=== PATIENT | male | born 1935 | race Caucasian/White ===

== ENCOUNTER 2019-02-19 20:36 | Emergency (ER) | payer OTHER, MEDICAID ==
[~2019-02-19] VITALS: Ht 162.6 cm; Wt 56.0 kg
[2019-02-19 22:59] LABS: HEMOGLOBIN. 11.2 g/dL (14.0-18.0); MEAN CORPUSCULAR HEMOGLOBIN 31.8 pg (28.0-32.0); MEAN CORPUSCULAR VOLUME 90.7 fL (80.0-94.0); MEAN PLATELET VOLUME 10.3 fl (7.4-10.4); PLATELET 248 x1000/uL (130-400); RED BLOOD CELL COUNT 3.53 mill/uL (4.7-6.1); RED CELL DISTRIBUTION WIDTH 12.8 % (11.6-14.6)
[2019-02-19 23:20] LABS: PLATELET ESTIMATE NORMAL
[2019-02-19 23:36] LABS: CHLORIDE 101 mEq/L (98-107)
[2019-02-19 23:56] LABS: CREATINE KINASE 121 IU/L (39-308)
[2019-02-20 03:11] VITALS: BP 157/80
[2019-02-20] MEDS ORDERED: KETOROLAC 30MG/ML VIAL IV ONE (03:30)
== END 2019-02-20 03:23 | disposition short-term general hospital (02) ==
LOC: ER 20:36 → CANBEDREQ 22:36 → ER 02-20 03:23
DX: R55 Syncope and collapse (principal); D72.829 Elevated white blood cell count, unspecified; I12.9 Hypertensive chronic kidney disease with stage 1 through stage 4 chronic kidney disease, or unspecified chronic kidney disease; N18.3 Chronic kidney disease, stage 3 (moderate); E87.6 Hypokalemia; R73.9 Hyperglycemia, unspecified; I11.0 Hypertensive heart disease with heart failure; I50.9 Heart failure, unspecified; I25.10 Atherosclerotic heart disease of native coronary artery without angina pectoris; Z86.73 Personal history of transient ischemic attack (TIA), and cerebral infarction without residual deficits; Z98.62 Peripheral vascular angioplasty status
CPT/HCPCS: 36415; 70450; 71045; 80053; 82550; 83880; 84484; 85025; 93005; 99285; J1885